=== PATIENT | female | born 1980 | race Caucasian/White ===

== ENCOUNTER 2020-02-14 14:25 | Outpatient (REF) | payer MEDICAID, SELFPAY ==
--- NOTE | 2020-02-14 13:30 | PAPFT_PTH ---
PATIENT: Nelida López LOC: [facility] U#:[id number] AGE/SX: 39/F ROOM: RE02/14/[address]: Nisreen Mariscal : 1980 BED: DIS: 02/14/2020 SPEC #: [id number] RECD: 02/17/20 12:36 STATUS: RAPHAEL REMel #: [id number] TAYLOR: 02/14/20 13:[address]: Nisreen Mariscal DEPT: [facility] Cytology RECD BY: Patricia Gabriel Tissues: 1 - CX/ENDOCX FOR PAP SMEARS Procedures: PAP THIN PREP/UVM Screening HPV DNA PROBE Comments: [id number]
[2020-02-14 19:34] LABS: HCT 41.7 % (36.0-46.0); HGB 13.7 g/dL (12.0-15.5); Mean Corp. HGB Concentration 32.9 g/dL (32.0-36.0); Mean Corpuscular Hemoglobin 30.5 pg (27.0-33.0); Mean Corpuscular Volume 92.9 fL (80-95); Mean Platelet Volume 9.6 fL (8.0-11.0); Platelet Count 396 x1000/uL (130-400); RBC 4.49 m/cumm (4.00-5.20); RBC Distribution Width 13.8 % (11.7-14.6); White Blood Cell Count 9.92 k/cumm (4.4-10.8)
[2020-02-14 20:04] LABS: ALT 62 U/L (14-59); AST 49 U/L (15-37); Alkaline Phosphatase 86 U/L (46-116); Anion Gap 10.1 mmol/L (3-11); BUN 9 mg/dL (7-18); Bilirubin, Total 0.3 mg/dL (0.2-1.0); CO2 26.9 mmol/L (21.0-32.0); CREATININE 0.59 mg/dL (0.55-1.02); Calcium 9.1 mg/dL (8.5-10.1); Chloride 103 mmol/L (98-107); Glucose 82 mg/dL (74-106); Potassium 4.4 mmol/L (3.5-5.1); Sodium 140 mmol/L (136-145); TSH (W/Ref FT4) 2.64 uIU/mL (0.36-3.74); Total Protein 7.8 g/dL (6.4-8.2)
[2020-02-16 10:24] LABS: Campylobacter PCR Negative (Negative); Salmonella PCR Negative (Negative); Shiga Toxin PCR Negative (Negative); Shigella/Enteroinvasive Ecoli Negative (Negative)
[2020-02-17 13:51] LABS: IgA 337 mg/dL (85-499); Tissue Transglutaminase IgA <1.2 U/mL (<4.0)
[2020-02-17 14:57] LABS: Iron 54 ug/dL (50-170); Total Iron Binding Capacity 394 ug/dL (250-450); Transferrin Sat 14 % (15-50)
[2020-02-17 15:32] LABS: Ferritin 127 ng/mL (8-252); Vitamin B12 304 pg/mL (193-986)
[2020-02-18 09:48] LABS: HBs Antibody, Quant 41.5 mIU/mL (See Note); Hepatitis B Surface Ab Positive (See Note); Hepatitis B Surface Ag Negative (Negative)
[2020-02-18 10:12] LABS: Hepatitis C Ab w Rflx HCV PCR Negative (Negative)
[2020-02-18 13:00] LABS: Transferrin 277 mg/dL (201-352)
== END 2020-02-14 14:45 ==
LOC: NCHCN 14:25
PROVIDERS: PCP Family Medicine; Visit Provider Family Medicine
DX: R19.7 Diarrhea, unspecified (principal); N76.4 Abscess of vulva; R79.89 Other specified abnormal findings of blood chemistry; E53.8 Deficiency of other specified B group vitamins; Z11.59 Encounter for screening for other viral diseases; Z12.4 Encounter for screening for malignant neoplasm of cervix; Z11.51 Encounter for screening for human papillomavirus (HPV)
CPT/HCPCS: 80053; 82784; 83516; 85027; 86706; 86803; 87329; 87340; 87505; 88142; 82607; 82728; 83540; 83550; 83630; 84443; 84466; 87070; 87205; 87324; 87624

== ENCOUNTER 2020-09-15 18:36 | Outpatient (REF) | payer MEDICAID, SELFPAY | END 2020-09-15 18:56 | LOC: LBN 18:36 | PROVIDERS: PCP Family Medicine; Referring Provider Obstetrics & Gynecology; Visit Provider Obstetrics & Gynecology | DX: N75.1 Abscess of Bartholin's gland (principal) | CPT/HCPCS: 87077; 87070; 87205 ==

== ENCOUNTER 2021-08-23 16:15 | Outpatient (REF) | payer MEDICAID, SELFPAY ==
[2021-08-23 21:11] LABS: Bilirubin Negative (Negative); Blood Moderate (Negative); Clarity Sl Cloudy (Clear); Glucose 100 mg/dL (Negative); Ketones Trace mg/dL (Negative); Leukocyte Esterase Large (Negative); Nitrite Positive (Negative); Specific Gravity 1.025 (1.005-1.025); pH 5.5 (5-8)
[2021-08-23 21:20] LABS: Bacteria Few HPF (Negative); C & S Indicated? Yes; Casts Negative LPF (Negative); Crystals Negative HPF (Negative); Epithelial Cells Few HPF (Negative); Mucus Negative (Negative); WBC 20-50 HPF (0-5)
== END 2021-08-23 16:16 | disposition home or self-care (01) ==
LOC: NCHCN 16:15
PROVIDERS: PCP Family Medicine; Visit Provider Family Medicine
DX: R30.0 Dysuria (principal)
CPT/HCPCS: 87077; 81003; 81015; 87086; 87186

== ENCOUNTER 2022-12-23 18:36 | Outpatient (REF) | payer MEDICAID, SELFPAY ==
[2022-12-23 19:22] LABS: HCT 34.8 % (36.0-46.0); HGB 11.6 g/dL (11.2-15.7); MCH 31.7 pg (27.0-33.0); MCHC 33.3 % (32.0-36.0); MCV 95 fL (80-95); MPV 10.9 fL (8.0-11.0); Platelet Count 187 10^3/uL (130-400); RBC 3.66 10^6/uL (3.93-5.22); RDW 14.6 % (11.7-14.6); RDW-SD 50.6 fL; WBC 8.31 10^3/uL (4.4-10.8)
[2022-12-23 19:48] LABS: Hemoglobin A1C 5.9 % (<5.7)
[2022-12-23 20:00] LABS: ALT 64 U/L (14-59); AST 83 U/L (15-37); Albumin 3.5 g/dL (3.4-5.0); Alkaline Phosphatase 169 U/L (46-116); Anion Gap 7.5 mmol/L (3-11); BUN 9 mg/dL (7-18); Bilirubin, Total 0.5 mg/dL (0.2-1.0); CO2 27.5 mmol/L (21.0-32.0); CREATININE 0.6 mg/dL (0.55-1.02); Calcium 8.6 mg/dL (8.5-10.1); Calculated LDL 59 mg/dL (<100); Chloride 105 mmol/L (98-107); Cholesterol 108 mg/dL (<200); Estimated GFR 115.57 (mL/min/1.73m2); Glucose 104 mg/dL (74-106); HDL Cholesterol 38 mg/dL (40-60); Magnesium 1.8 mg/dL (1.8-2.4); Sodium 140 mmol/L (136-145); Total Protein 7.4 g/dL (6.4-8.2); Triglyceride 55 mg/dL (<150); Vitamin B12 689 pg/mL (193-986)
== END 2022-12-23 18:37 | disposition home or self-care (01) ==
LOC: NCHCN 18:36
PROVIDERS: PCP Family Medicine; Visit Provider Family Medicine
DX: F10.10 Alcohol abuse, uncomplicated (principal); E53.8 Deficiency of other specified B group vitamins; R73.09 Other abnormal glucose; K70.10 Alcoholic hepatitis without ascites; R79.89 Other specified abnormal findings of blood chemistry; Z13.220 Encounter for screening for lipoid disorders
CPT/HCPCS: 80053; 80061; 85027; 82607; 83036; 83735; 85025

== ENCOUNTER 2023-01-23 01:30 | Outpatient (CLI) | payer MEDICAID, SELFPAY ==
--- NOTE | 2023-01-23 | DI.US_ITS ---
Exam(s) US PELVIS EXAM: US PELVIS CLINICAL HISTORY: ABNL UTERINE BLEEDING N93.9, HEAVY LONG PERIODS, IRREGULAR. TECHNIQUE: Transabdominal pelvic ultrasound was performed using standard protocol. The patient elec moshe to forego the transvaginal portion of the examination. COMPARISON: US ABDOMEN ULTRASOUND (P) from 04/08/2015 FINDINGS: UTERUS: Position: Anteverted. Size: 8.9 long by 5.2 AP by 6.8 transverse cm Endometrium: 1.6 cm. This is mildly thickened. The endometrial stripe is homogeneous. Myometrium: Unremarkable. Cervix: Unremarkable. OVARIES: Right: 4 x 2.6 x 1.8 cm Cyst or mass: No suspicious cystic or solid masses. Left: 2.6 x 1.3 x 3.1 cm Cyst or mass: No suspicious cystic or solid masses. DOPPLER: Color: Symmetric and uniform flow to both ovaries. CUL-DE-SAC: Free fluid: None. Other: None. IMPRESSION: 1. Mildly thickened but otherwise homogeneous endometrial stripe. A follow-up examination in 6 8 wee id is recommended for re-evaluation of the endometrium. 2. Unremarkable bilateral ovaries. DATA REPOSITORY:
== END 2023-01-23 01:50 ==
LOC: DI 01:31
PROVIDERS: PCP Family Medicine; Visit Provider Family Medicine
DX: N93.8 Other specified abnormal uterine and vaginal bleeding (principal); N92.5 Other specified irregular menstruation; R93.89 Abnormal findings on diagnostic imaging of other specified body structures
CPT/HCPCS: 76856

== ENCOUNTER 2023-03-07 01:23 | Outpatient (CLI) | payer MEDICAID, SELFPAY ==
--- NOTE | 2023-03-07 13:45 | DI.US_ITS ---
Exam(s) US PELVIS EXAM: US PELVIS CLINICAL HISTORY: THICKENED ENDOMETRIUM, N85.00 TECHNIQUE: Ultrasound of the pelvis was performed transabdominally using the urinary bladder is an a coustic window. Patient apparently declined transvaginal study.. COMPARISON: US US PELVIS from 01/23/2023 FINDINGS: UTERUS: Nongravid and anteverted Measures 9 cm length x 5 cm AP x 6 cm wide. There are no uterine fibroids. Endometrial thickness measures 10-11 mm. There is no fluid in the endometrial canal. CERVIX: There are no obvious nabothian cysts. RIGHT OVARY: Measures 4 x 2 x 1.6 cm Small follicular cysts. No solid masses. LEFT OVARY: Measures 0.2 x 1.6 x 2.6 cm Small follicular cysts. No solid masses. CUL-DE-SAC: No extraovarian adnexal masses. No free fluid. IMPRESSION: 1. No uterine fibroids. Slightly thickened endometrium. Appears homogeneous. No fluid in the endom etrial cavity. Recommend follow-up endometrial measurement a few months time. 2. No abnormal ovarian findings. 3. No free fluid evident in the adnexal regions and cul-de-sac. DATA REPOSITORY:
== END 2023-03-07 01:43 ==
LOC: DI 01:24
PROVIDERS: PCP Family Medicine; Visit Provider Family Medicine
DX: N85.00 Endometrial hyperplasia, unspecified (principal)
CPT/HCPCS: 76856

== ENCOUNTER 2023-06-26 12:13 | Outpatient (REF) | payer MEDICAID, SELFPAY ==
[2023-06-29 13:31] LABS: Chlamydia Result Negative (Negative); GC Result Negative (Negative)
== END 2023-06-26 12:14 | disposition home or self-care (01) ==
LOC: NCHCN 12:13
PROVIDERS: PCP Family Medicine; Visit Provider Family Medicine
DX: N89.8 Other specified noninflammatory disorders of vagina (principal); Z11.3 Encounter for screening for infections with a predominantly sexual mode of transmission
CPT/HCPCS: 87491; 87591; 87480; 87510; 87660

== ENCOUNTER 2024-11-05 21:35 | Emergency (ER) | payer BC, SELFPAY ==
[2024-11-05] VITALS (15 sets, daily range): BP systolic 94–124; BP diastolic 46–77; PULSE 85–123; RESP 12–26; TEMP 36.3; O2SAT 86–99
[2024-11-05 22:42] LABS: Abs Immature Grans 0.05 10^3/uL (0.0-0.06); Absolute Basophil Count 0.11 10^3/uL (0.0-0.2); Absolute Eosinophil Count 0.07 10^3/uL (0.0-0.7); Absolute Lymphocyte Count 2.46 10^3/uL (1.2-3.4); Absolute Monocyte Count 0.98 10^3/uL (0.1-0.8); Absolute Neutrophil Count 7.77 10^3/uL (1.2-6.7); Eosinophils % 0.6 %; HCT 31.3 % (36.0-46.0); HGB 10.7 g/dL (11.2-15.7); Immature Grans % 0.4 %; Lymphocytes % 21.5 %; MCH 33.1 pg (27.0-33.0); MCHC 34.2 % (32.0-36.0); MCV 97 fL (80-95); MPV 10.3 fL (8.0-11.0); Monocytes % 8.6 %; Neutrophils % 67.9 %; Platelet Count 116 10^3/uL (130-400); RBC 3.23 10^6/uL (3.93-5.22); RDW 18.7 % (11.7-14.6); RDW-SD 66.3 fL; WBC 11.45 10^3/uL (4.4-10.8)
[2024-11-05 22:52] LABS: Bilirubin Large (Negative); Blood Trace-intact (Negative); Clarity Sl Cloudy (Clear); Glucose 100 mg/dL (Negative); Ketones Trace mg/dL (Negative); Leukocyte Esterase Small (Negative); Nitrite Positive (Negative)
--- NOTE | 2024-11-05 22:54 | DI.RAD_ITS ---
Exam(s) XR PORTABLE CHEST AP EXAM: XR PORTABLE CHEST AP CLINICAL HISTORY: cough and hemoptysis. TECHNIQUE: 2D digital imaging was performed. COMPARISON: No exams were available for comparison FINDINGS: Single AP portable view. Heart size is upper normal. The mediastinum is not widened. Lungs are clear. No infiltrates nor obvious pleural effusions. IMPRESSION: No acute pulmonary findings on this single AP portable view of the chest. DATA REPOSITORY: RADIATION DOSE DELIVERED:
[2024-11-05 23:00] LABS: Bacteria Many HPF (Negative); C & S Indicated? No/Sq. Contamination; Casts Negative LPF (Negative); Crystals Negative HPF (Negative); Epithelial Cells Moderate HPF (Negative); Mucus Negative (Negative); RBC 0-2 HPF (0-2)
[2024-11-05] MEDS: Ondansetron 4 MG/2 ML VIAL IVP (23:02)
[2024-11-05 23:03] LABS: *AMPHETAMINES SCREEN URINE Negative (Negative); *BARBITURATES SCREEN URINE Negative (Negative); *BENZODIAZEPINES SCREEN URINE Negative (Negative); Cannabinoids THC Negative (Negative); Cocaine Screen,Urine Negative (Negative); METHADONE URINE SCREEN Negative (Negative); OPIATES URINE SCREEN Negative (Negative); Tricyclic Antidepressants Negative (Negative)
[2024-11-05] MEDS: Octreotide 100 MCG/ML VIAL 50 MCG IVP (23:03)
[2024-11-05] MEDS: Pantoprazole 40 MG VIAL 80 MG IVP (23:05)
[2024-11-05] MEDS: PANTOPRAZOLE 80 MG in Normal Saline 100 ML 10 MG IV (23:05)
--- NOTE | 2024-11-05 23:05 | W.ED.GENAD ---
Discharge Plan Disposition Patient Disposition: Transfer-Acute Inpatient Care Specific Acute Inpt Facility: [facility] Condition: Serious Discharge Details Chief Complaint: RespSymp Clinical Impression: Upper gastrointestinal hemorrhage, Esophageal varices in alcoholic cirrhosis, Acute alcohol intoxication with alcoholism Primary Care Provider: Nisreen Mariscal ED Provider: Jorge Waite Home Meds and New Rx's Prescriptions: No Action acetaminophen 500 MG/5 ML liquid 500 mg PO PRN HPI General Date/Time Provider Initiated Documentation: 11/05/24 21:42. HPI Narrative: The patient is a 43-year-old female, with a past medical history significant for self-reported alcohol misuse disorder with relatively little interval medical care over the course of the last few years, presents to the emergency department this evening after having repeated episodes of hematemesis tonight. The patient states that at around 8 PM, she coughed several times and a few blood clots seem to come out. This alarmed the patient and she asked her son's girlfriend to drive her to the hospital. On the car ride over the patient had an episode of maroon blood hematemesis, and had a second episode approximately an hour later in her room. The patient denies having any abdominal pain. The patient denies any diarrhea. The patient tells me that she drinks vodka preferentially but cannot quantify to me how much she thinks she drinks in a day. The patient tells me that she has been sober within the last year, for approximately 6 months around her birthday earlier in the year. The patient states that she has had significant withdrawal symptoms in the past but does not think she has ever had a seizure before. The patient denies prior episodes of upper GI bleeding or pancreatitis that she knows of. Related Data Home Medications ?Medication ?Instructions ?Recorded ?Confirmed acetaminophen 500 mg/5 mL oral 500 mg PO PRN 06/25/13 11/05/24 liquid Allergies Allergy/AdvReac Type Severity Reaction Status Date / Time No Known Allergies Allergy Unverified 11/05/24 21:46 General Stated Complaint: RespSymp EARL: 3 Exam Const General: cooperative, anxious, disheveled and ill appearing Eyes Sclera: scleral abnormality (jaundice) bilaterally Pupils: PERRL EOM: EOM intact bilaterally Neck Neck: full ROM and supple Resp Effort & Inspection: normal respiratory effort and able to speak in complete sentences Auscultation: clear to auscultation bilaterally Cardio Rate: tachycardic Rhythm: regular rhythm Heart Sounds: S1 normal and S2 normal GI Inspection: distended and caput medusae present Palpation: soft and hepatomegaly Percussion: fluid wave Auscultation: hypoactive bowel sounds Skin General skin exam: jaundice and turgor decreased Other: There were several areas of bruising or purpura on the bilateral lower extremities below the knees. The appearance favors pattern injury bruising from occult trauma. Neuro General: patient alert, patient awake, patient oriented x3, moves all extremities, normal light touch, pain and propioception, no focal motor deficits and CN's II-XI intact bilaterally Cognition: normal cognition Speech: speech normal Extrem General: full ROM, capillary refill normal and no edema Psych Appearance: disheveled Mood: anxious mood Affect: dysphoric affect Attitude: cooperative Thought Process: normal Course Vital Signs Vital signs: Vital Signs Temperature 36.3 C L 11/05/24 21:38 Pulse 101 H 11/05/24 21:38 Respiratory Rate 15 11/05/24 21:38 Blood Pressure 124/77 11/05/24 21:38 Pulse Oximetry 98 11/05/24 21:38 Temperature 36.3 C L 11/05/24 21:43 Pulse 101 H 11/05/24 21:43 Respiratory Rate 15 11/05/24 21:43 Respiratory Effort Normal, Non-Labored 11/05/24 21:52 Respiratory Depth Normal 11/05/24 21:52 Blood Pressure 124/77 11/05/24 21:43 Blood Pressure Position Sitting 11/05/24 21:43 Pulse Oximetry 98 11/05/24 21:43 Oxygen Delivery Method Room Air 11/05/24 21:43 Oxygen Flow Rate 0 11/05/24 21:38 Lab/Test Results Lab/Test Results: Laboratory Tests Range/Units 11/05/24 11/05/24 11/05/24 21:56 22:10 22:10 WBC (4.4-10.8) 10^3/uL 11.45 H RBC (3.93-5.22) 10^6/uL 3.23 L Hgb (11.2-15.7) g/dL 10.7 L Hct (36.0-46.0) % 31.3 L MCV (80-95) fL 97 H MCH (27.0-33.0) pg 33.1 H MCHC (32.0-36.0) % 34.2 RDW (11.7-14.6) % 18.7 H Plt Count (130-400) 10^3/uL 116 L MPV (8.0-11.0) fL 10.3 Immature Gran % % 0.4 Neutrophils % % 67.9 Lymphocytes % % 21.5 Monocytes % % 8.6 Eosinophils % % 0.6 Basophils % % 1.0 Nucleated RBC % (0.0-0.3) % 0.0 Absolute Neutrophils (1.2-6.7) 10^3/uL 7.77 H Absolute Lymphocytes (1.2-3.4) 10^3/uL 2.46 Absolute Monocytes (0.1-0.8) 10^3/uL 0.98 H Absolute Eosinophils (0.0-0.7) 10^3/uL 0.07 Absolute Basophils (0.0-0.2) 10^3/uL 0.11 PT Cancelled INR Cancelled APTT Cancelled Sodium Cancelled Potassium Cancelled Chloride Cancelled Carbon Dioxide Cancelled Anion Gap Cancelled BUN Cancelled Creatinine Cancelled Est GFR (CKD-EPI 2020) Cancelled Glucose Cancelled Calcium Cancelled Magnesium Cancelled Total Bilirubin Cancelled Cancelled Conjugated Bilirubin Cancelled AST Cancelled ALT Alkaline Phosphatase Troponin I Total Protein Albumin Lipase Urine Color (Yellow) Yellow Urine Clarity (Clear) Sl Cloudy Urine pH (5-8) 7.0 Ur Specific Mcguffey (1.005-1.025) 1.010 Urine Protein (Neg-Trace) mg/dL 30 H Urine Ketones (Negative) mg/dL Trace H Urine Blood (Negative) Trace-intact H Urine Nitrite (Negative) Positive H Urine Bilirubin (Negative) Large H Urine Urobilinogen (Up to 0.2) mg/dL 4.0 H Ur Leukocyte Esterase (Negative) Small H Urine RBC (0-2) HPF 0-2 Urine WBC (0-5) HPF 10-20 H Ur Epithelial Cells (Negative) HPF Moderate Urine Crystals (Negative) HPF Negative Urine Bacteria (Negative) HPF Many Urine Casts (Negative) LPF Negative Urine Mucus (Negative) Negative Ur Culture Indicated? No/Sq. Contamination Urine Glucose (Negative) mg/dL 100 H Salicylates Urine Opiates Screen (Negative) Negative Urine Methadone Screen (Negative) Negative Acetaminophen Ur Barbiturates Screen (Negative) Negative Ur Tricyclics Screen (Negative) Negative Ur Amphetamines Screen (Negative) Negative U Benzodiazepines Scrn (Negative) Negative Urine Cocaine Screen (Negative) Negative Ur THC Screen (Negative) Negative Ethyl Alcohol Range/Units 11/05/24 11/05/24 11/05/24 22:10 22:10 22:10 WBC (4.4-10.8) 10^3/uL RBC (3.93-5.22) 10^6/uL Hgb (11.2-15.7) g/dL Hct (36.0-46.0) % MCV (80-95) fL MCH (27.0-33.0) pg MCHC (32.0-36.0) % RDW (11.7-14.6) % Plt Count (130-400) 10^3/uL MPV (8.0-11.0) fL Immature Gran % % Neutrophils % % Lymphocytes % % Monocytes % % Eosinophils % % Basophils % % Nucleated RBC % (0.0-0.3) % Absolute Neutrophils (1.2-6.7) 10^3/uL Absolute Lymphocytes (1.2-3.4) 10^3/uL Absolute Monocytes (0.1-0.8) 10^3/uL Absolute Eosinophils (0.0-0.7) 10^3/uL Absolute Basophils (0.0-0.2) 10^3/uL PT INR APTT Sodium Potassium Chloride Carbon Dioxide Anion Gap BUN Creatinine Est GFR (CKD-EPI 2020) Glucose Calcium Magnesium Total Bilirubin Conjugated Bilirubin AST Cancelled ALT Cancelled Cancelled Alkaline Phosphatase Cancelled Cancelled Troponin I Cancelled Total Protein Cancelled Albumin Lipase Urine Color (Yellow) Urine Clarity (Clear) Urine pH (5-8) Ur Specific Mcguffey (1.005-1.025) Urine Protein (Neg-Trace) mg/dL Urine Ketones (Negative) mg/dL Urine Blood (Negative) Urine Nitrite (Negative) Urine Bilirubin (Negative) Urine Urobilinogen (Up to 0.2) mg/dL Ur Leukocyte Esterase (Negative) Urine RBC (0-2) HPF Urine WBC (0-5) HPF Ur Epithelial Cells (Negative) HPF Urine Crystals (Negative) HPF Urine Bacteria (Negative) HPF Urine Casts (Negative) LPF Urine Mucus (Negative) Ur Culture Indicated? Urine Glucose (Negative) mg/dL Salicylates Urine Opiates Screen (Negative) Urine Methadone Screen (Negative) Acetaminophen Ur Barbiturates Screen (Negative) Ur Tricyclics Screen (Negative) Ur Amphetamines Screen (Negative) U Benzodiazepines Scrn (Negative) Urine Cocaine Screen (Negative) Ur THC Screen (Negative) Ethyl Alcohol Range/Units 11/05/24 11/05/24 22:10 22:10 WBC (4.4-10.8) 10^3/uL RBC (3.93-5.22) 10^6/uL Hgb (11.2-15.7) g/dL Hct (36.0-46.0) % MCV (80-95) fL MCH (27.0-33.0) pg MCHC (32.0-36.0) % RDW (11.7-14.6) % Plt Count (130-400) 10^3/uL MPV (8.0-11.0) fL Immature Gran % % Neutrophils % % Lymphocytes % % Monocytes % % Eosinophils % % Basophils % % Nucleated RBC % (0.0-0.3) % Absolute Neutrophils (1.2-6.7) 10^3/uL Absolute Lymphocytes (1.2-3.4) 10^3/uL Absolute Monocytes (0.1-0.8) 10^3/uL Absolute Eosinophils (0.0-0.7) 10^3/uL Absolute Basophils (0.0-0.2) 10^3/uL PT INR APTT Sodium Potassium Chloride Carbon Dioxide Anion Gap BUN Creatinine Est GFR (CKD-EPI 2020) Glucose Calcium Magnesium Total Bilirubin Conjugated Bilirubin AST ALT Alkaline Phosphatase Troponin I Total Protein Cancelled Albumin Cancelled Cancelled Lipase Cancelled Urine Color (Yellow) Urine Clarity (Clear) Urine pH (5-8) Ur Specific Mcguffey (1.005-1.025) Urine Protein (Neg-Trace) mg/dL Urine Ketones (Negative) mg/dL Urine Blood (Negative) Urine Nitrite (Negative) Urine Bilirubin (Negative) Urine Urobilinogen (Up to 0.2) mg/dL Ur Leukocyte Esterase (Negative) Urine RBC (0-2) HPF Urine WBC (0-5) HPF Ur Epithelial Cells (Negative) HPF Urine Crystals (Negative) HPF Urine Bacteria (Negative) HPF Urine Casts (Negative) LPF Urine Mucus (Negative) Ur Culture Indicated? Urine Glucose (Negative) mg/dL Salicylates Cancelled Urine Opiates Screen (Negative) Urine Methadone Screen (Negative) Acetaminophen Cancelled Ur Barbiturates Screen (Negative) Ur Tricyclics Screen (Negative) Ur Amphetamines Screen (Negative) U Benzodiazepines Scrn (Negative) Urine Cocaine Screen (Negative) Ur THC Screen (Negative) Ethyl Alcohol Cancelled Medical Decision Making This patient was seen and examined. After her second episode of maroon blood from above, approximating around 100 mL, I think it is relatively clear that the patient has an upper GI bleed. The bleed does not appear to be particularly brisk at this time. The patient has stable vital signs and does not appear in significant distress. The patient will be given IV pantoprazole and IV octreotide here in the emergency room to help resolve the upper GI bleeding, presumably from a variceal source. I am not particularly inclined to think that the initial episode was actually hemoptysis, but I think it is more likely that the patient had some mild hematemesis with clot production in her throat which caused her to cough. The second episode of vomiting was clearly emesis and was clearly blood clots. The patient's initial blood counts are low but not in the range where she would require immediate transfusion. The patient's clinical appearance is such that I would be surprised if she did not have advanced cirrhotic liver disease with ascites already present. I anticipate the patient will go on to develop melena in the next few hours. The patient will require admission to the hospital for ongoing supportive care, hydration, medical management at this time for her upper GI bleed, transfusion if necessary for acute blood loss, and management of likely impending alcohol withdrawal. After the initial acquisition of data, I will discuss the case with the hospitalist service as we have ICU bed availability tonight. [id number] - After discussion with the hospitalist service and surgery here in [facility], ultimately the services did not feel like they could manage this patient at this facility. If the patient were to have a significant complication related to a variceal bleed, there is limited blood supply and limited surgical expertise needed to deal with that problem. The patient did have a third episode of emesis here in the emergency room at around 3 AM, which was again around 100-150 mL of maroon clots. I discussed the case with the [facility], and their ICU services. They accepted the patient in transfer for ICU level observation care, supportive care, blood transfusion if needed, management of alcohol withdrawal, and management of variceal bleeding with ability to provide definitive care if needed. Quality:[facility] Health Related Social Needs: No Data to Display Critical Care Time Critical Care Time Critical Care Time: Yes Total Critical Care Time: 120 Attestation: This patient was evaluated and regularly treated here in the emergency room for an upper GI bleed, cirrhotic liver disease, alcohol induced coagulopathy, and management of alcohol metabolic derangement and alcohol withdrawal symptoms. Records were reviewed and the case was discussed with multiple consultants as a bridge to transfer to a tertiary care center for ICU level definitive care. [facility] All Active Problems (Updated 11/06/24 @ 03:39 by Jorge Waite MD) Acute alcohol intoxication with alcoholism (Acute) Esophageal varices in alcoholic cirrhosis (Acute) Upper gastrointestinal hemorrhage (Acute) Acute hemorrhoid (Acute) Bartholin's gland abscess (Acute) Social History Smoking risk assessment performed?: No Drug use: Never PAWSS Have you Been Recently Intoxicated or Drunk Within the Last 30 days?: Yes Have you Ever Experienced Previous Episodes of Alcohol Withdrawal?: Yes Have you ever Experienced Withdrawal Seizures?: No Have you ever Experienced Delirium Tremens(DT)s?: No Have you ever undergone Alcohol Rehabilitation Treatment (i.e, inpt ot outpatient treatment programs)?: Yes Have you ever Experienced Blackouts?: Yes Have you ever Combined Alcohol with other Downers within the last 90 days?: No Have you ever Combined Alcohol with any other Substance of Abuse during the last 90 days?: No Evidence of Increased Autonomic Activity (i.e. HR>120, tremor, sweating, agitation, nausea)?: No Result: 4
[2024-11-05] MEDS: DEXTROSE 5%-0.45% SALINE 1,000 ML 50 ML IV (23:39)
[2024-11-05 23:59] LABS: PTT Activated 44.1 sec (23.6-32.8)
[2024-11-06] VITALS (30 sets, daily range): BP systolic 84–117; BP diastolic 38–93; PULSE 84–107; RESP 11–28; O2SAT 89–97
[2024-11-06 00:02] LABS: HCG Qual (Serum) Negative
[2024-11-06 00:12] LABS: INR 2.5 (0.9-1.1); Prothrombin Time 23.2 sec (9.1-11.1)
[2024-11-06 00:13] LABS: Acetaminophen < 2 ug/mL (10-30); Salicylate < 2.8 mg/dL (<2.8)
--- NOTE | 2024-11-06 00:29 | DI.VRAD_ITS ---
PROCEDURE INFORMATION: Exam: XR Chest Exam date and time: 11/05/2024 10:52 PM Age: 43 years old Clinical indication: Cough with hemorrhage; Patient HX: Cough and hemoptysis TECHNIQUE: Imaging protocol: Radiologic exam of the chest. Views: 1 view. COMPARISON: No relevant prior studies available. FINDINGS: Lungs: Unremarkable. No consolidation. Pleural spaces: Unremarkable. No pleural effusion. No pneumothorax. Heart/Mediastinum: Unremarkable. No cardiomegaly. Bones/joints: Unremarkable. IMPRESSION: No acute cardiopulmonary process. Dictated and Authenticated by: Stefan Morgan MD. Ordering:BALTAZAR Patel MD
[2024-11-06 00:46] LABS: ALT 19 U/L (14-59); AST 144 U/L (15-37); Albumin 1.9 g/dL (3.4-5.0); Alkaline Phosphatase 236 U/L (46-116); Anion Gap 10.1 mmol/L (3-11); BUN 3 mg/dL (7-18); Bilirubin, Direct 5.3 mg/dL (0.0-0.2); Bilirubin, Total 7.12 mg/dL (0.2-1.0); CO2 24.9 mmol/L (21.0-32.0); CREATININE 0.5 mg/dL (0.55-1.02); Calcium 7.2 mg/dL (8.5-10.1); Chloride 103 mmol/L (98-107); Estimated GFR 120.02 (mL/min/1.73m2); Glucose 100 mg/dL (74-106); Magnesium 1.4 mg/dL (1.8-2.4); Potassium 3.3 mmol/L (3.5-5.1); Sodium 138 mmol/L (136-145); Total Protein 7.6 g/dL (6.4-8.2)
[2024-11-06 00:47] LABS: ETHANOL BLOOD 373.9 mg/dL (<10)
[2024-11-06 01:49] LABS: Troponin I 27 ng/L (<or=51)
[2024-11-06 02:23] LABS: Troponin I 33 ng/L (<or=51)
[2024-11-06] MEDS: Ondansetron 4 MG/2 ML VIAL IVP ×2 (02:34→05:15)
[2024-11-06] MEDS: cefTRIAXone 1 GM/50 ML BAG IVPB (03:26)
[2024-11-06] MEDS: PHENobarbital 250 MG in Normal Saline 50 ML 100 MG IVPB (06:29)
[2024-11-06] MEDS: diphenhydrAMINE 50 MG/ML VIAL 12.5 MG IVP (07:08)
== END 2024-11-06 07:33 | disposition short-term general hospital (02) ==
PROVIDERS: Emergency Provider Emergency Medicine Emergency Medical Services; PCP Family Medicine
DX: K92.2 Gastrointestinal hemorrhage, unspecified (principal); K70.30 Alcoholic cirrhosis of liver without ascites; I85.10 Secondary esophageal varices without bleeding; F10.220 Alcohol dependence with intoxication, uncomplicated; Y90.8 Blood alcohol level of 240 mg/100 ml or more
CPT/HCPCS: 36415; 80053; 80076; 80307; 83690; 86850; 86900; 86901; 96365; 96367; 96375; 96376; 99285; 71045; 80320; 80329; 81003; 81015; 83735; 84484; 84703; 85025; 85610; 85730; J0696; J1200; J2354; J2405; J2470; J2560

== ENCOUNTER 2025-05-19 15:28 | Outpatient (REF) | payer BC, SELFPAY ==
--- NOTE | 2025-05-19 11:10 | PAPFT_PTH ---
PATIENT: Nelida López LOC: [facility] U#:[id number] AGE/SX: 44/F ROOM: RE05/19/[address]: Nisreen Mariscal : 1980 BED: DIS: 05/19/2025 SPEC #: [id number] RECD: 05/19/25 18:16 STATUS: RAPHAEL REQ #: [id number] TAYLOR: 05/19/25 11:[address]: Nisreen Mariscal DEPT: [facility] Cytology RECD BY: Patricia Gabriel Tissues: 1 - CX/ENDOCX FOR PAP SMEARS Procedures: PAP THIN PREP/UVM Screening HPV DNA PROBE Comments: [id number] (HPV 16 & 18/45)
== END 2025-05-19 15:29 | disposition home or self-care (01) ==
LOC: NCHCN 15:28
PROVIDERS: PCP Family Medicine; Visit Provider Family Medicine
DX: Z11.51 Encounter for screening for human papillomavirus (HPV) (principal); Z01.419 Encounter for gynecological examination (general) (routine) without abnormal findings; R87.810 Cervical high risk human papillomavirus (HPV) DNA test positive
CPT/HCPCS: 88142; 87624

== ENCOUNTER 2025-07-04 15:03 | Outpatient (CLI) | payer BC, SELFPAY ==
--- NOTE | 2025-07-04 | DI.RAD_ITS ---
Exam(s) XR CHEST 2V PA LATERAL EXAM: XR CHEST 2V PA LATERAL CLINICAL HISTORY: SOB, R06.02. TECHNIQUE: 2D digital imaging was performed. COMPARISON: US ABDOMEN ULTRASOUND (P) from 04/08/2015 CR,XR XR PORTABLE CHEST AP from 11/05/2024 FINDINGS: 2 views: Heart size is upper normal/minimally prominent.. The mediastinum is not widened. There is a bilateral pulmonary venous hypertension pattern and a small-moderate size right pleural effusion. Also small area of infiltrate in the right lung base. No obvious pleural effusion on the left side. Incidentally noted are multiple interventional coils in the left upper quadrant of the abdomen and on the lateral view there is a silastic appearing stent which may be a CBD stent. This is not evident on the frontal view IMPRESSION: Mild cardiomegaly. Probable pulmonary edema and small-moderate size right pleural effusion.Other findings as above. DATA REPOSITORY: RADIATION DOSE DELIVERED:
== END 2025-07-04 15:23 ==
LOC: DI 15:03
PROVIDERS: PCP Family Medicine; Visit Provider Family Medicine
DX: R06.02 Shortness of breath (principal); I51.7 Cardiomegaly
CPT/HCPCS: 71046